=== PATIENT | female | born 1965 | race Caucasian/White ===

== ENCOUNTER 2018-10-15 19:09 | Emergency (ER) | payer SELFPAY ==
[~2018-10-15] VITALS: Ht 175.3 cm; Wt 75.0 kg
[2018-10-15 19:11] VITALS: Ht 175.3 cm; Wt 75.0 kg
[2018-10-15] MEDS ORDERED: SYNTHROID100 MCG PO (19:12)
[2018-10-15 19:55] LABS: BASOPHILS 0.2 % (0-2); EOSINOPHILS 0 % (0-7); HEMATOCRIT 50.1 % (36.0-48.0); HEMOGLOBIN 16.3 g/dL (12-16); IMMATURE GRANULOCYTES 0.4 % (0-5); LYMPHOCYTES 7.3 % (15-50); MCH 33.4 pg (26.0-34.0); MCHC 32.5 g/dL (31.0-37.0); MCV 102.7 fL (80.0-100.0); MEAN PLATELET VOLUME 10.4 fL (7.4-10.4); MONOCYTES 7.9 % (2-11); NEUTROPHILS 84.2 % (40-80); PLATELET COUNT 134 10x3/uL (130-400); RBC 4.88 10x6/uL (4.00-5.40); RDW 16.1 % (11.5-14.5); WBC 9.9 10x3/uL (4.8-10.8)
[2018-10-15 20:14] LABS: ALBUMIN 4.8 g/dL (3.4-5.0); ANION GAP 41.2 mmol/L (8-16); BILIRUBIN - TOTAL 1.97 mg/dL (0.2-1.3); CALCIUM 9.1 mg/dL (8.5-10.1); CARBON DIOXIDE 11.4 mmol/L (21.0-32.0); CREATININE - SERUM 1.3 mg/dL (0.6-1.3); POTASSIUM - SERUM 3.6 mmol/L (3.5-5.1)
[2018-10-15 21:54] LABS: APPEARANCE CLEAR (CLEAR); BILIRUBIN NEGATIVE (NEGATIVE); COLOR YELLOW (YELLOW); GLUCOSE NEGATIVE (NEGATIVE); KETONE LARGE mg/dL (NEGATIVE); NITRITE NEGATIVE (NEGATIVE); PROTEIN 1+ mg/dL (NEGATIVE); UROBILINOGEN NORMAL (NORMAL)
[2018-10-15 21:57] LABS: RED CELLS - URINE 0-5 /hpf (0-5); WHITE CELLS - URINE OCC /hpf (0-5)
[2018-10-15] MEDS ORDERED: FLAGYL500 MG PO (22:26)
[2018-10-15] MEDS ORDERED: CIPRO500 MG PO (22:26)
[2018-10-15] MEDS ORDERED: PHENERGAN25 M1 PO (22:26)
[2018-10-16 00:11] VITALS: BP 125/63
== END 2018-10-16 00:13 | disposition home or self-care (01) ==
LOC: D.ER 19:09
PROVIDERS: Family Medicine
DX: K50.00 Crohn's disease of small intestine without complications (principal); E03.9 Hypothyroidism, unspecified; F17.200 Nicotine dependence, unspecified, uncomplicated